=== PATIENT | male | born 1950 | race Caucasian/White ===

== ENCOUNTER 2016-12-10 08:00 | Outpatient (CLI) | payer MEDICARE, OTHER | END 2016-12-10 08:01 | disposition home or self-care (01) | DX: E78.2 Mixed hyperlipidemia (principal); R73.9 Hyperglycemia, unspecified; Z12.5 Encounter for screening for malignant neoplasm of prostate | CPT/HCPCS: 36415; 80061; 80076; 83036; G0103 ==

== ENCOUNTER 2017-01-25 06:45 | Day surgery (SDC) | payer MEDICARE, OTHER ==
[2017-01-25] MEDS ORDERED: LACTATED RINGERS 1,000 ML IV ONE ×2 (07:20→09:10)
[2017-01-25] MEDS ORDERED: MIDAZOLAM 2 MG/2 ML VIAL IVP ONE (08:40)
[2017-01-25] MEDS ORDERED: fentaNYL 250 MCG/5 ML VIAL IVP ONE (08:40)
[2017-01-25] MEDS ORDERED: LIDO GARGLE 30 ML BOTTLE PO ONE (08:45)
== END 2017-01-25 06:46 | disposition home or self-care (01) ==
PROC: 0DBL8ZZ Excision of Transverse Colon, Via Natural or Artificial Opening Endoscopic (ICD-10-PCS; 2017-01-25)
PROC: 0DJ08ZZ Inspection of Upper Intestinal Tract, Via Natural or Artificial Opening Endoscopic (ICD-10-PCS; 2017-01-25)
PROC: 0DBP8ZZ Excision of Rectum, Via Natural or Artificial Opening Endoscopic (ICD-10-PCS; principal; 2017-01-25 08:15)
PROC: 0DBL8ZZ Excision of Transverse Colon, Via Natural or Artificial Opening Endoscopic (ICD-10-PCS; 2017-01-25 08:15)
DX: Z12.11 Encounter for screening for malignant neoplasm of colon (principal); D12.3 Benign neoplasm of transverse colon; K62.1 Rectal polyp; K64.8 Other hemorrhoids; Z80.0 Family history of malignant neoplasm of digestive organs; R12 Heartburn; Z87.891 Personal history of nicotine dependence; I10 Essential (primary) hypertension
CPT/HCPCS: 43235; 45380; 45385; A9270; J3010; J7120

== ENCOUNTER 2017-03-18 13:59 | Outpatient (CLI) | payer MEDICARE, OTHER | END 2017-03-18 14:00 | disposition home or self-care (01) | DX: E78.2 Mixed hyperlipidemia (principal); Z79.899 Other long term (current) drug therapy ==

== ENCOUNTER 2017-04-20 07:10 | Outpatient (CLI) | payer MEDICARE, OTHER ==
[2017-04-20 13:36] LABS: CALCIUM 9.4 mg/dL (8.5-10.3); CREATININE 0.7 mg/dL (0.6-1.2)
== END 2017-04-20 07:11 | disposition home or self-care (01) ==
LOC: LAB.WCP 07:10
PROVIDERS: ATTEND Physician Assistant Medical
DX: Z79.899 Other long term (current) drug therapy (principal)
CPT/HCPCS: 36415; 80048

== ENCOUNTER 2017-05-30 15:20 | Outpatient (CLI) | payer MEDICARE, OTHER ==
[2017-05-30 12:53] LABS: ALBUMIN/GLOBULIN RATIO 1.4 (1.0-2.2); BILIRUBIN,TOTAL 0.7 mg/dL (0.2-1.0); BUN - BLOOD UREA NITROGEN 15 mg/dL (6-20); CALCIUM 9.4 mg/dL (8.5-10.3); CARBON DIOXIDE - CO2 28 mmol/L (21-32); CHLORIDE 103 mmol/L (101-111); CHOL/HDL RATIO 3.8 (<5.0); CHOLESTEROL 155 mg/dL; CREATININE 0.8 mg/dL (0.6-1.2); GFR - MDRD 97 (>89); GLUCOSE 113 mg/dL (70-100); HDL CHOLESTEROL 41 mg/dL; POTASSIUM 4.1 mmol/L (3.5-5.0); SODIUM 138 mmol/L (135-145); TOTAL PROTEIN 7.3 g/dL (6.7-8.2); TRIGLYCERIDES 165 mg/dL; VLDL CHOLESTEROL 33 mg/dL
== END 2017-05-30 15:21 | disposition home or self-care (01) ==
LOC: LAB.WCP 15:20
PROVIDERS: ATTEND Physician Assistant Medical
DX: E78.2 Mixed hyperlipidemia (principal); Z79.899 Other long term (current) drug therapy
CPT/HCPCS: 36415; 80053; 80061

== ENCOUNTER 2017-08-29 07:43 | Outpatient (CLI) | payer MEDICARE, OTHER ==
[2017-08-29 13:09] LABS: CALCIUM 9.1 mg/dL (8.5-10.3); CARBON DIOXIDE - CO2 28 mmol/L (21-32); CHLORIDE 103 mmol/L (101-111); GLUCOSE 114 mg/dL (70-100); POTASSIUM 4.1 mmol/L (3.5-5.0); SODIUM 136 mmol/L (135-145)
[2017-08-29 13:20] LABS: HEMOGLOBIN A1C 0.72 g/dL
[2017-08-29 13:53] LABS: ALBUMIN/GLOBULIN RATIO 1.4 (1.0-2.2); BILIRUBIN,TOTAL 0.8 mg/dL (0.2-1.0); BUN - BLOOD UREA NITROGEN 13 mg/dL (6-20); CHOLESTEROL 159 mg/dL; CREATININE 0.7 mg/dL (0.6-1.2); GFR - MDRD 112 (>89); HDL CHOLESTEROL 40 mg/dL; LDL/HDL RATIO 2.1 (<3.6); TOTAL PROTEIN 7.1 g/dL (6.7-8.2); TRIGLYCERIDES 178 mg/dL; VLDL CHOLESTEROL 36 mg/dL
== END 2017-08-29 07:44 | disposition home or self-care (01) ==
LOC: LAB.WCP 07:43
PROVIDERS: ATTEND Physician Assistant Medical
DX: Z51.81 Encounter for therapeutic drug level monitoring (principal); R73.9 Hyperglycemia, unspecified; E78.2 Mixed hyperlipidemia
CPT/HCPCS: 36415; 80053; 80061; 83036

== ENCOUNTER 2018-02-28 07:18 | Outpatient (CLI) | payer MEDICARE, OTHER ==
[2018-02-28 12:46] LABS: ALBUMIN 4.4 g/dL (3.2-5.5); ALBUMIN/GLOBULIN RATIO 1.6 (1.0-2.2); ALKALINE PHOSPHATASE 40 IU/L (42-121); ALT ALANINE AMINOTRANSFERASE 11 IU/L (10-60); AST ASPARTATE AMINOTRANSFERASE 22 IU/L (10-42); BILIRUBIN,TOTAL 0.7 mg/dL (0.2-1.0); BUN - BLOOD UREA NITROGEN 17 mg/dL (6-20); CARBON DIOXIDE - CO2 29 mmol/L (21-32); CHLORIDE 101 mmol/L (101-111); CHOL/HDL RATIO 3.8 (<5.0); CHOLESTEROL 146 mg/dL; CREATININE 0.7 mg/dL (0.6-1.2); GFR - MDRD 112 (>89); GLUCOSE 112 mg/dL (70-100); HDL CHOLESTEROL 38 mg/dL; LDL CHOLESTEROL,CALCULATED 65 mg/dL; LDL/HDL RATIO 1.7 (<3.6); SODIUM 136 mmol/L (135-145); TOTAL PROTEIN 7.1 g/dL (6.7-8.2); VLDL CHOLESTEROL 43 mg/dL
== END 2018-02-28 07:19 | disposition home or self-care (01) ==
LOC: LAB.WCP 07:18
PROVIDERS: ATTEND Family Medicine
DX: E78.2 Mixed hyperlipidemia (principal); Z51.81 Encounter for therapeutic drug level monitoring; Z79.899 Other long term (current) drug therapy
CPT/HCPCS: 36415; 80053; 80061; 83721

== ENCOUNTER → 2018-09-22 | Outpatient (CLI) | payer MEDICARE, OTHER ==
[2018-09-22 13:15] LABS: CHOL/HDL RATIO 3.1 (<5.0); CHOLESTEROL 129 mg/dL; HDL CHOLESTEROL 42 mg/dL; LDL CHOLESTEROL,CALCULATED 69 mg/dL; LDL/HDL RATIO 1.6 (<3.6); VLDL CHOLESTEROL 18 mg/dL
== END ==
LOC: LAB.WCP 08:00
PROVIDERS: ATTEND Family Medicine
DX: E78.2 Mixed hyperlipidemia (principal)
CPT/HCPCS: 36415; 80061; 83721

== ENCOUNTER 2019-02-05 10:26 | Outpatient (CLI) | payer MEDICARE, OTHER ==
--- NOTE | 2019-02-05 11:26 | XRAY Report ---
Reason: SHOULDER JOINT PAIN, RIGHT Procedure Date: 02/05/2019 Accession Number: [id number] / [id number] Procedure: WCP - Shoulder 3 View RT CPT Code: FULL RESULT: EXAM: RIGHT SHOULDER RADIOGRAPHY EXAM DATE: 02/05/2019 10:41 AM. CLINICAL HISTORY: Shoulder joint pain, right. COMPARISON: None. TECHNIQUE: 3 views. FINDINGS: Bones: Normal. No fracture or bone lesion. Joints: There is mild degenerative marginal osteophyte of the inferior glenoid. Minor degenerative osteophyte noted at the AC joint. No dislocation or subluxation. Soft tissues: The visualized hemithorax is unremarkable. No soft tissue swelling. IMPRESSION: Mild degenerative changes. No fracture. RADIA
== END 2019-02-05 10:27 | disposition home or self-care (01) ==
LOC: DI.WCP 10:26
PROVIDERS: ATTEND Physician Assistant
DX: M19.011 Primary osteoarthritis, right shoulder (principal)

== ENCOUNTER 2019-03-21 17:59 | Outpatient (CLI) | payer MEDICARE ==
--- NOTE | 2019-03-22 14:56 | MRI Report ---
Reason: SHOULDER JOINT PAIN,RIGHT Procedure Date: 03/21/2019 Accession Number: [id number] / [id number] Procedure: MRI - Shoulder RT W/O CPT Code: FULL RESULT: EXAM: RIGHT SHOULDER MRI WITHOUT CONTRAST EXAM DATE: 03/21/2019 07:00 PM. CLINICAL HISTORY: SHOULDER JOINT PAIN,RIGHT. COMPARISON: 02/05/2019 radiographs. TECHNIQUE: Multiplanar, multisequence T1-weighted and fluid-sensitive sequences of the shoulder without contrast. Other: None. FINDINGS: Rotator cuff: Ill-defined full-thickness tear involving the supraspinatus and upper infraspinatus measures 2.5 cm medial to lateral and 2.7 cm anterior to posterior. Thickening and increased T2 signal involving the distal fibers of the infraspinatus. Low-grade insertional tear involving the upper subscapularis allowing slight medial subluxation of the long head biceps tendon. No significant rotator cuff muscle atrophy. Long head biceps tendon: Slight medial subluxation at the upper aspect of the bicipital groove. Otherwise intact. Labrum: Linear high signal consistent with small tear at the anteroinferior labrum. Otherwise intact. Bones and articular surfaces: No significant articular cartilage defects. Acromioclavicular joint: Moderate degenerative change. Type II acromion. IMPRESSION: 1. Full-thickness tear of the distal supraspinatus and upper infraspinatus measuring 2.5 x 2.7 cm. 2. Moderate infraspinatus and subscapularis tendinosis. 3. Low-grade insertional tear of the upper subscapularis allowing slight medial subluxation of the otherwise intact long head biceps tendon. 4. Small tear at the anteroinferior labrum. 5. Moderate degenerative change at the acromioclavicular joint. RADIA
== END 2019-03-21 18:00 | disposition home or self-care (01) ==
LOC: DI 17:59
PROVIDERS: ATTEND Physician Assistant
DX: M75.101 Unspecified rotator cuff tear or rupture of right shoulder, not specified as traumatic (principal); S43.491A Other sprain of right shoulder joint, initial encounter; M19.011 Primary osteoarthritis, right shoulder

== ENCOUNTER 2019-04-02 08:38 | Outpatient (CLI) | payer MEDICARE ==
[2019-04-02 09:14] LABS: BASOPHILS % (AUTO) 0.6 %; EOSINOPHILS # (AUTO) 0.1 10^3/uL (0.0-0.7); EOSINOPHILS % (AUTO) 2.7 %; HGB - HEMOGLOBIN 15.8 g/dL (14.0-18.0); LYMPHOCYTES % (AUTO) 19.2 %; MEAN CORPUSCULAR HEMOGLOBIN 29.2 pg (27.0-31.0); MEAN CORPUSCULAR VOLUME 88.5 fL (80.0-94.0); MONOCYTES # (AUTO) 0.5 10^3/uL (0.0-1.0); NEUTROPHILS # (AUTO) 3.7 10^3/uL (1.5-6.6); NEUTROPHILS % (AUTO) 68.5 %; PLT - PLATELET COUNT 178 10^3/uL (130-450); RED BLOOD COUNT 5.42 10^6/uL (4.70-6.10); WHITE BLOOD COUNT 5.4 x10^3/uL (4.8-10.8)
[2019-04-02 09:27] LABS: CALCIUM 9.6 mg/dL (8.5-10.3); CREATININE 0.7 mg/dL (0.6-1.2)
== END 2019-04-02 08:39 | disposition home or self-care (01) ==
LOC: LAB 08:38
PROVIDERS: ATTEND Orthopaedic Surgery Sports Medicine
DX: Z01.818 Encounter for other preprocedural examination (principal); M75.41 Impingement syndrome of right shoulder; M75.101 Unspecified rotator cuff tear or rupture of right shoulder, not specified as traumatic; S46.121A Laceration of muscle, fascia and tendon of long head of biceps, right arm, initial encounter
CPT/HCPCS: 36415; 80048; 85025; 93005

== ENCOUNTER 2019-04-04 08:50 | Day surgery (SDC) | payer MEDICARE ==
[~2019-04-04 08:50] MED LIST: ceFAZolin 2 GM/50 ML 2 GM/50 ML BAG IV ONE
[2019-04-04] MEDS ORDERED: LACTATED RINGERS 1,000 ML IV ONE ×2 (09:18→11:00)
--- NOTE | 2019-04-04 09:20 | ANESTHESIA ---
Pre-Anesthesia VS, & Labs - Diagnosis right shoulder rotator cuff tear, long head of biceps subluxation, impingement - Procedure right shoulder arthroscopy vs open,right subacromial decompression,rotator cuff repair,tenodesis Vital Signs: Temp Pulse Resp BP Pulse Ox 36.4 C L 63 18 130/72 95 04/04/19 09:00 04/04/19 09:00 04/04/19 09:00 04/04/19 09:00 04/04/19 09:00 Height 5 ft 6 in Weight (kg) 69.6 kg - NPO >8 hours Home Medications and Allergies Amlodipine Besylate 10 mg PO DAILY 01/24/17 Allergies/Adverse Reactions: Allergies Allergy/AdvReac Type Severity Reaction Status Date / Time No Known Drug Allergies Allergy Verified 01/24/17 13:52 Anes History & Medical History - Anesthetic History Anesthesia Complications: reports: No previous complications Family history of Anesthesia Complications: Denies Family history of Malignant Hyperthermia: Denies - Medical History Cardiovascular: reports: Hypertension Pulmonary: reports: None Gastrointestinal: reports: None Urinary: reports: None Musculoskeletal: reports: None Endocrine/Autoimmune: reports: None Skin: reports: None - Surgical History General: Colonoscopy Exam General: Alert, Oriented x3, Cooperative, No acute distress Dental: Partials Upper, Partials Lower Mouth Openin Fingerbreadth Neck Mobility: Normal Mallampati classification: II Thyromental Distance: greater than 6 cm Respiratory: Lungs clear, Normal breath sounds, No respiratory distress, No accessory muscle use Cardiovascular: Regular rate, Normal S1, Normal S2, No murmurs Mental/Cognitive Status: Alert/Oriented X3, Normal for patient Plan Anesthesia Type: General, Interscalene Block Consent for Procedure(s) Verified and Reviewed: Yes Code Status: Attempt Resuscitation ASA classification: 2-Mild systemic disease Is this case an emergency?: No
[2019-04-04] MEDS ORDERED: BUPIVACAINE 0.5%-EPI 1:200000 PF 30 ML VIAL ONE (09:40)
[2019-04-04] MEDS ORDERED: BUPIVACAINE 0.25%-EPI 1:200000 PF 30 ML VIAL ONE (09:45)
[2019-04-04] MEDS ORDERED: EPINEPHrine 1 MG/ML AMP ONE (09:48)
[2019-04-04] MEDS ORDERED: BUPIVACAINE 0.25% PF 10 ML VIAL SUBQ ONE (10:45)
[2019-04-04] MEDS ORDERED: KETOROLAC 30 MG/ML VIAL IVP ONE (10:48)
[2019-04-04] MEDS ORDERED: fentaNYL 100 MCG/2 ML VIAL IVP ONE (10:48)
[2019-04-04] MEDS ORDERED: LIDOCAINE-MPF 2% 5 ML VIAL IM ONE (10:48)
[2019-04-04] MEDS ORDERED: ROCURONIUM 50 MG/5 ML VIAL IVP ONE (10:48)
[2019-04-04] MEDS ORDERED: ONDANSETRON 4 MG/2 ML VIAL IVP ONE (10:48)
[2019-04-04] MEDS ORDERED: MIDAZOLAM 2 MG/2 ML VIAL IVP ONE (10:48)
[2019-04-04] MEDS ORDERED: DEXAMETHASONE 4 MG/ML VIAL IVP ONE (10:48)
[2019-04-04] MEDS ORDERED: ACETAMINOPHEN 1,000 MG/100 ML 100 ML IV ONE (10:48)
[2019-04-04] MEDS ORDERED: HYDROmorphone 0.5 MG/0.5 ML SYRINGE IVP PRN (12:38)
[2019-04-04] MEDS ORDERED: ONDANSETRON 4 MG/2 ML VIAL IVP PRN (12:38)
[2019-04-04] MEDS ORDERED: oxyCODONE 5 MG TABLET PO PRN (12:39)
--- NOTE | 2019-04-04 12:42 | IMMEDIATE POSTOPERATIVE NOTE ---
Immediate Postoperative Note - Procedure Note Procedure Date: 04/04/19 Pre-Op Diagnosis: Right shoulder rotator cuff tear, subacromial impingement, Long head biceps Procedure: Arthroscopic right shoulder rotator cuff repair, long head biceps tenodesis Post-Op Diagnosis: Same Primary Surgeon: Angélica MOLINA Carrier Packer: DAVE Anesthesia Type: General ET tube, Local, Regional block Findings: Long head biceps with partial injury and subluxation full-thickness supraspinatus tear subacromial bursitis and anterior acromial spur Complications: No complications Estimated Blood Loss (in cc): 75 Plan of Care: Patient tolerated procedure well instrument and sponge counts correct patient transferred to recovery room in stable condition. Patient will follow standard right upper extremity rotator cuff repair and long head biceps tenodesis protocol.
[2019-04-04 13:25] VITALS: BP 126/84
--- NOTE | 2019-04-04 13:37 | OPERATIVE REPORT ---
DATE OF SERVICE: 04/04/2019 Physician: Oziel Goodson MD SURGEON: Oziel Goodson MD RESTAURANT TEAM MEMBER: None. ORE MINER BLASTING: Laura Vega CRNA. ANESTHESIA TYPE: General anesthesia as well as right side shoulder interscalene regional block, as w ell as 20 mL of 0.25% Marcaine with epinephrine local. ESTIMATED BLOOD LOSS: 75 mL. ANTIBIOTICS: Preoperative weight-based IV Ancef. COMPRESSION DEVICE: Bilateral calf SCD boots. FLUIDS: 1400 mL lactated Ringer's. ORTHOPEDIC IMPLANTS 1. Arthrex triple-loaded BioComposite corkscrew x3, 5.5 mm. 2. [employer] 7 x 19 mm SwiveLock and associated #2 FiberWires. PREOPERATIVE DIAGNOSES: 1. Right shoulder rotator cuff tear. 2. Right shoulder subacromial impingement. 3. Right shoulder long head biceps injury. POSTOPERATIVE DIAGNOSES: 1. Right shoulder rotator cuff tear. 2. Right shoulder subacromial impingement. 3. Right shoulder long head biceps injury. PROCEDURES: 1. Right shoulder arthroscopic rotator cuff repair. 2. Right shoulder arthroscopic subacromial decompression. 3. Right shoulder arthroscopic long head biceps tenodesis. HISTORY OF PRESENT ILLNESS AND INDICATIONS: The patient is a 68-year-old gentleman who injured his r ight shoulder, found to have rotator cuff and biceps injury as well as impingement. He is indicated for operative treatment. Please see previous clinic discussion for risks, benefits and alternatives reviewed with the patient. We again highlighted these with the patient and the patient's in the preoperative care unit. His questions were answered. He verbalized understanding of the above, lyssa balized wish to proceed with operative treatment. Informed consent was given. OPERATIVE FINDINGS: The patient was noted to have glenohumeral joint with partial biceps injury and s ubluxation. There is full-thickness rotator cuff tear supraspinatus, minimal fraying subscapularis. Minimal glenohumeral chondromalacia grade 1-2 with some labral fraying. No loose bodies appreciated . Downsloping anterior aspect of the acromion and subacromial bursitis. PROCEDURE: On 04/04/2019, patient was identified in the preoperative care unit. He identified his r ight shoulder as the operative site. This was signed by the operating surgeon. Patient received pre operative weight-based IV antibiotics. Patient had right side identified, and interscalene ultrasoun d-guided block is administered to the right shoulder. Patient brought to the operating room. General anesthesia administered. He was placed on the left s anup down lateral decubitus position. The head, neck and extremities placed in anatomically comfortab le and safe position to avoid peripheral nerve stretch or compression. Abdomen and legs gel-padded, SCD boots were in place, pillows are between legs, genitalia is confirme d to be safe. Axillary roll was placed appropriately to avoid any compression of the axilla. Head a nd neck are protected. At this point, right upper extremity is pre-scrubbed with Hibiclens solution and then alcohol after s having of the axilla, and then the right upper extremity was prepped and draped using chlorhexidine s olution. A combination of 5 or 15 pounds of traction are used during different portions of the case. At this point, after prepping and draping, the right shoulder was identified as the operative site, site identification pause performed. At this point, local anesthetic infused posteriorly, anteriorly and laterally. A small stab incision was made posteriorly. Scope was introduced into the glenohumeral joint. Anterior portal was create d. A diagnostic arthroscopy was carried out. Biceps was tagged and then released from the superior labrum. This was debrided, and then attention was directed to the subacromial space, where subacromi al decompression performed using a combination of shaver as well as arthroscopic heating device with appropriate flow to avoid thermal injury, as well as bur through a lateral portal to convert to a typ e I acromion. Once this was performed, the supraspinatus rotator cuff tear was debrided sharply using a meniscal ba sket . The bur was used to freshen the rotator cuff footprint. At this point, a long head biceps wa s pulled through an anterolateral axillary portal. It is tagged and whip-stitched with a #2 FiberWir e, and sized, and then a guide pin was placed into the superior aspect of the biceps groove, followed by reaming to a size 7.5 mm, followed by placing the biceps tendon into this groove, and being fixed with a SwiveLock device per protocol. This fixes the biceps nicely in the long head biceps groove, and then the residual sutures are cut. At this point, three sequential anterior to posterior triple-loaded anchors were placed in the rotato r cuff footprint with 8 simple sutures, followed by a final horizontal mattress suture posteriorly. These were tied in reverse order thereby re-opposing the rotator cuff to the near anatomic footprint, and suture limbs were then cut. The rotator cuff was examined and ranged, and noted to be stable, a nd probed. No further indication for any additional rotator cuff repair needed. At this point, the subacromial space was copiously irrigated. Hemostasis achieved. Instruments are removed. Arthroscopic portals were closed using interrupted nylon suture. Skin is washed and dried, local anesthetic infused in the incision regions. Xeroform dressing applied. Dry sterile dressing applied and micropore tape is applied. The patient tolerated the procedure well. Instrument and sponge counts were correct. The patient wa s transferred to recovery room in stable condition. The patient's family was contacted in the waitin g room. Case discussed with the patient's , arthroscopic photos reviewed. Perioperative medicat ion plan reviewed. The patient denied any contraindications to that preoperatively. Postoperative instructions given. The patient's 's questions were answered. She verbalized agre ement and satisfaction with the plan as outlined, as had been previously discussed with the patient. TD: 04/04/2019 12:53
== END 2019-04-04 08:51 | disposition home or self-care (01) ==
LOC: SDS 08:50
PROVIDERS: ATTEND Orthopaedic Surgery Sports Medicine
PROC: 0LQ14ZZ Repair Right Shoulder Tendon, Percutaneous Endoscopic Approach (ICD-10-PCS; 2019-04-04)
PROC: 0RNJ4ZZ Release Right Shoulder Joint, Percutaneous Endoscopic Approach (ICD-10-PCS; 2019-04-04)
PROC: 0LS14ZZ Reposition Right Shoulder Tendon, Percutaneous Endoscopic Approach (ICD-10-PCS; principal; 2019-04-04 10:00)
PROC: 0RHJ44Z Insertion of Internal Fixation Device into Right Shoulder Joint, Percutaneous Endoscopic Approach (ICD-10-PCS; 2019-04-04 10:00)
DX: S46.011A Strain of muscle(s) and tendon(s) of the rotator cuff of right shoulder, initial encounter (principal); S46.191A Other injury of muscle, fascia and tendon of long head of biceps, right arm, initial encounter; M75.41 Impingement syndrome of right shoulder; M75.51 Bursitis of right shoulder; M94.211 Chondromalacia, right shoulder; M75.81 Other shoulder lesions, right shoulder; I10 Essential (primary) hypertension; Z87.891 Personal history of nicotine dependence
CPT/HCPCS: 29826; 29827; 29828; C1713; J0690; J7120

== ENCOUNTER 2019-07-26 08:00 | Outpatient (CLI) | payer MEDICARE ==
[2019-07-26 12:32] LABS: BASOPHILS % (AUTO) 0.5 %; EOSINOPHILS # (AUTO) 0.2 10^3/uL (0.0-0.7); EOSINOPHILS % (AUTO) 4.2 %; HGB - HEMOGLOBIN 15.2 g/dL (14.0-18.0); LYMPHOCYTES # (AUTO) 0.9 10^3/uL (1.5-3.5); LYMPHOCYTES % (AUTO) 16.3 %; MEAN CORPUSCULAR HEMOGLOBIN 28.6 pg (27.0-31.0); MEAN CORPUSCULAR HGB CONC 31.3 g/dL (32.0-36.0); MEAN CORPUSCULAR VOLUME 91.3 fL (80.0-94.0); MEAN PLATELET VOLUME 11.7 fL (7.4-11.4); MONOCYTES # (AUTO) 0.5 10^3/uL (0.0-1.0); MONOCYTES % (AUTO) 9.2 %; NEUTROPHILS % (AUTO) 69.3 %; PLT - PLATELET COUNT 197 10^3/uL (130-450); RED BLOOD COUNT 5.31 10^6/uL (4.70-6.10); WHITE BLOOD COUNT 5.8 x10^3/uL (4.8-10.8)
[2019-07-26 12:38] LABS: ALBUMIN 4.2 g/dL (3.2-5.5); ALBUMIN/GLOBULIN RATIO 1.4 (1.0-2.2); ALKALINE PHOSPHATASE 46 IU/L (42-121); ALT ALANINE AMINOTRANSFERASE 13 IU/L (10-60); AST ASPARTATE AMINOTRANSFERASE 23 IU/L (10-42); BILIRUBIN,TOTAL 1.1 mg/dL (0.2-1.0); BUN - BLOOD UREA NITROGEN 21 mg/dL (6-20); CALCIUM 9.2 mg/dL (8.5-10.3); CARBON DIOXIDE - CO2 30 mmol/L (21-32); CHLORIDE 103 mmol/L (101-111); CHOL/HDL RATIO 3.7 (<5.0); CHOLESTEROL 176 mg/dL; CREATININE 0.7 mg/dL (0.6-1.2); GFR - MDRD 112 (>89); GLUCOSE 117 mg/dL (70-100); HDL CHOLESTEROL 47 mg/dL; LDL CHOLESTEROL,CALCULATED 111 mg/dL; LDL/HDL RATIO 2.4 (<3.6); SODIUM 139 mmol/L (135-145); TOTAL PROTEIN 7.2 g/dL (6.7-8.2); VLDL CHOLESTEROL 18 mg/dL
[2019-07-26 13:12] LABS: HB2 TOTAL 15.6 g/dL; HEMOGLOBIN A1C 0.68 g/dL; HEMOGLOBIN A1C % 6.1 % (4.6-6.2)
== END 2019-07-26 23:59 | disposition home or self-care (01) ==
LOC: LAB.WCP 08:00
PROVIDERS: ATTEND Physician Assistant
DX: E78.2 Mixed hyperlipidemia (principal); R73.9 Hyperglycemia, unspecified; Z12.5 Encounter for screening for malignant neoplasm of prostate; I10 Essential (primary) hypertension; D12.6 Benign neoplasm of colon, unspecified; R68.3 Clubbing of fingers; R06.83 Snoring; Z51.81 Encounter for therapeutic drug level monitoring; Z79.899 Other long term (current) drug therapy
CPT/HCPCS: 36415; 80061; 83036; G0103; 80053; 83721; 84153; 84443; 85025

== ENCOUNTER 2020-08-05 13:13 | Outpatient (CLI) | payer MEDICARE | END 2020-08-05 13:14 | disposition home or self-care (01) | LOC: COV 13:13 | PROVIDERS: ATTEND Family Medicine | DX: M79.10 Myalgia, unspecified site (principal); R19.7 Diarrhea, unspecified; Z20.828 Contact with and (suspected) exposure to other viral communicable diseases ==

== ENCOUNTER 2020-12-08 07:00 | Outpatient (CLI) | payer MEDICARE ==
[2020-12-08 12:04] LABS: BASOPHILS % (AUTO) 0.6 %; EOSINOPHILS # (AUTO) 0.1 10^3/uL (0.0-0.7); EOSINOPHILS % (AUTO) 1.7 %; HGB - HEMOGLOBIN 15.4 g/dL (14.0-18.0); LYMPHOCYTES # (AUTO) 1.1 10^3/uL (1.5-3.5); LYMPHOCYTES % (AUTO) 21.7 %; MEAN CORPUSCULAR HEMOGLOBIN 30.4 pg (27.0-31.0); MEAN CORPUSCULAR VOLUME 92.1 fL (80.0-94.0); MONOCYTES # (AUTO) 0.4 10^3/uL (0.0-1.0); MONOCYTES % (AUTO) 8.1 %; NEUTROPHILS # (AUTO) 3.5 10^3/uL (1.5-6.6); NEUTROPHILS % (AUTO) 67.7 %; PLT - PLATELET COUNT 196 10^3/uL (130-450); RED BLOOD COUNT 5.07 10^6/uL (4.70-6.10); RED CELL DISTRIBUTION WIDTH 12.6 % (12.0-15.0); WHITE BLOOD COUNT 5.2 x10^3/uL (4.8-10.8)
[2020-12-08 13:08] LABS: ALBUMIN 4.4 g/dL (3.2-5.5); ALBUMIN/GLOBULIN RATIO 1.5 (1.0-2.2); ALKALINE PHOSPHATASE 53 IU/L (42-121); ALT ALANINE AMINOTRANSFERASE 13 IU/L (10-60); AST ASPARTATE AMINOTRANSFERASE 19 IU/L (10-42); BILIRUBIN,TOTAL 0.7 mg/dL (0.2-1.0); BUN - BLOOD UREA NITROGEN 17 mg/dL (6-20); CALCIUM 9.4 mg/dL (8.5-10.3); CARBON DIOXIDE - CO2 28 mmol/L (21-32); CHLORIDE 102 mmol/L (101-111); CHOL/HDL RATIO 3.5 (<5.0); CHOLESTEROL 188 mg/dL; CREATININE 0.8 mg/dL (0.6-1.2); GLUCOSE 119 mg/dL (70-100); HDL CHOLESTEROL 53 mg/dL; LDL CHOLESTEROL,CALCULATED 109 mg/dL; LDL/HDL RATIO 2.1 (<3.6); TOTAL PROTEIN 7.4 g/dL (6.7-8.2); VLDL CHOLESTEROL 26 mg/dL
== END 2020-12-08 23:59 | disposition home or self-care (01) ==
LOC: LAB.WCP 07:00
PROVIDERS: ATTEND Physician Assistant Medical
DX: R73.9 Hyperglycemia, unspecified (principal); E78.2 Mixed hyperlipidemia; Z12.5 Encounter for screening for malignant neoplasm of prostate; I10 Essential (primary) hypertension
CPT/HCPCS: 36415; 80053; 80061; 83036; 84443; 85025; G0103; 83721; 84153

== ENCOUNTER 2021-01-23 08:24 | Outpatient (CLI) | payer MEDICARE ==
[2021-01-23 09:16] VITALS: BP 113/66
--- NOTE | 2021-01-23 09:16 | SLEEP CARE CONSULTATION ---
Information from patient questionnaire entered by Laura Sauceda. I have reviewed and concur with the information entered by Laura Sauceda. This document represents the service I personally performed and the decisions made by me, Nayla Hopper ARNP. History of Present Illness Service Date and Time: 01/23/2021823 Reason for Visit: New patient Chief Complaint: reports: Snoring, Observed pauses in breathing Date of Onset: more than 20 years Usual bedtime: 9-10 pm Time it takes to fall asleep: no time Snores at night: Yes Observed to quit breathing while asleep: Yes Sleeps alone due to snoring: No Number of times waking at night: once in a while Reasons for waking at night: reports: Bathroom. denies: Choking, Snoring, Gasping for air Toss, Turn, or Twitch while sleeping: No Recalls having dreams: No Usually gets out of bed at: 5-6 am Feels refreshed in the morning: Yes Morning headache: No Sleepy or fatigued during the day: No Ever fallen asleep while driving: No Takes day naps: No Dreams during day naps: No Prior sleep studies: No Additional HPI information: I had the pleasure of seeing FRANDY SALVADOR today regarding the possibility of him having a sleep disorder. His current complaints are snoring and observed pauses in breathing. His and a friend has told him he snores loudly. He had a colonoscopy and was told he stopped breathing under anesthesia. He feels rested in the mornings and not overly sleepy during the day. He has history of hypertension, high cholesterol and psoriasis. - Parasomnia Symptoms Ever been unable to move upon waking from sleep: No Walks in sleep: No Talks in sleep: No Ever acted out dreams in sleep: No Ever felt weak in the knees when startled or emotional: No Bothered by creepy, crawly, restless sensations in legs: No Problems with memory or concentration: No Subjective Initial [place] Sleepiness Scale score: 4 (in 2020) Past Medical History Past Medical History: reports: Hypertension, Other (high cholesterol; psoriasis) Social History The patient's occupation is a Retired. Patient is and lives in [place]. Have you smoked in the past 12 months: No Alcohol use: No Caffeine use: Yes Caffeine amount and frequency: 3-4 cups a day Family History Family history of sleep disordered breathing: No Allergies and Home Medications Drug allergies reviewed: Yes (NKDA) Home medication list reviewed: Yes Allergy and home medication list: Methotrexate Lisinopril Lovastatin Review of Systems Weight loss over past 5 years: 10 Cardiovascular: reports: high blood pressure Gastrointestinal: denies: heartburn Neurological: denies: headaches Psychiatric: denies: anxiety, depression, mood disorder Ear/Nose/Throat: reports: nasal congestion, injury to nose (not a fracture), tonsillectomy, wisdom teeth removed. denies: dry mouth/throat Immunologic: reports: sneezing, allergies to food or environment (environment) Physical Exam Blood Pressure: 113/66 Cuff size: wrist Heart Rate: 69 O2 Saturation: 96 Height: 5 ft 6 in Weight: 156 lb Body Mass Index: 25.2 BMI Classification: Overweight Neck circumference: 15.1 (inches) Nostrils: patent to airflow Mouth and throat: narrow oropharynx Soft palate: long Hard palate: normal Uvula visualization: 25% Mallampati Class III Tongue: normal in size Tonsils: absent bilaterally Chin and jaw: normal size and position Neck: normal w/o lymphadenopathy or thyromegaly Heart: regular rate and rhythm Lungs: clear bilaterally Impression and Plan 1. Suspected Obstructive Sleep Apnea-Hypopnea Syndrome, as suggested by a history of loud and irregular snoring, observed cessation of breath while asleep and hypertension. Narrow oropharynx and obesity are common predisposing factors for obstructive sleep apnea-hypopnea syndrome. I recommend proceeding to polysomnography to confirm the diagnosis and to assess severity. If the patient has significant sleep disordered breathing, a manual CPAP titration study will also be performed to find the optimal treatment pressure. I informed the patient of what the sleep studies involve and after some discussion, obtained agreement to proceed. The pathophysiology of obstructive sleep apnea-hypopnea syndrome was discussed with the patient and health risks of cardiovascular and cerebrovascular disease if not treated. AASM brochure for obstructive sleep apnea-hypopnea syndrome given and reviewed. Risks of drowsy driving discussed in detail and patient advised to avoid long distance driving and to tack puller machine at the first sign of drowsiness. Patient agreed to plan. * Schedule polysomnography +- manual CPAP titration study and return in 1-2 weeks after the study to discuss result and initiate therapy. * Avoid long distance driving or driving when feeling sleepy. * Avoid alcohol, sedative and muscle relaxant around bedtime. * Attempt to lose weight. * Review instructions provided by trained office staff on how to prepare for the sleep study. * Return for follow-up after sleep study completed. Counseling Topics: Weight loss health impact Visit Type: In Office Time Spent with Patient (minutes): 27 Provider Statement: I spent 100% of the Face to Face Visit with the patient with greater than 50% spent counseling the patient and coordination of care.
== END 2021-01-23 08:25 | disposition home or self-care (01) ==
LOC: SC 08:24
PROVIDERS: ATTEND Nurse Practitioner Family
DX: R06.81 Apnea, not elsewhere classified (principal); R06.83 Snoring; I10 Essential (primary) hypertension; E66.3 Overweight; Z68.25 Body mass index [BMI] 25.0-25.9, adult
CPT/HCPCS: 99202; G0463; 99212

== ENCOUNTER 2021-02-17 08:58 | Outpatient (CLI) | payer MEDICARE | END 2021-02-17 08:59 | disposition home or self-care (01) | LOC: SC 08:58 | PROVIDERS: ATTEND Nurse Practitioner Family | DX: G47.33 Obstructive sleep apnea (adult) (pediatric) (principal); R09.02 Hypoxemia | CPT/HCPCS: G0399 ×2; 95806 ==

== ENCOUNTER 2021-02-19 15:44 | Outpatient (CLI) | payer MEDICARE ==
--- NOTE | 2021-02-19 16:06 | SLEEP CARE CONSULTATION ---
Information from patient questionnaire entered by Juliana Garsia. I have reviewed and concur with the information entered by Juliana Garsia. This document represents the service I personally performed and the decisions made by me, Nayla Hopper ARNP. History of Present Illness Service Date and Time: 02/19/2021 1544 Initial [place] Sleepiness Scale score: 4 (in 2020) Current [place] Sleepiness Scale score: 6 Additional HPI information: FRANDY SALVADOR returns for follow up and results of the recently performed home sleep study. Results: Severe obstructive sleep apnea with an average AHI of 47.9 and clara oxygen saturation of 58%. I explained the pathophysiology behind obstructive sleep apnea. We then spent quite a bit of time discussing different treatment options. For mild obstructive sleep apnea, surgery and oral appliance are alternatives to nasal CPAP therapy but in moderate or severe cases, nasal CPAP is the most effective and reliable treatment. Because apnea is primarily in supine position, then positional management therapy could be effective. Methods discussed such as positioning with pillows, using a T-shirt with tennis balls in the back, and shown commercial products that have a pillow format on back to prevent supine sleep. I reviewed the impact of weight changes on sleep apnea and strongly recommended losing weight. After some discussion, the patient opted to go with the nasal CPAP therapy. Nasal a utoCPAP set at 4-15 cmH20 will be ordered with rationale explained. A manual titration study will be ordered if unable to find optimal pressure with office adjustments. I explained how CPAP machine works with sample devices Respironics Dreamstation and ResMed [id number] and what to expect when using the machine. Using CPAP every night in order to get used to it was emphasized. Patient advised to put CPAP mask on before getting into bed so as not to fall asleep without CPAP. To assist acclimation to CPAP use, it could also be used for a short time during day while reading or watching TV. The patient was instructed to call the CPAP supplier to discuss any mechanical problem that may occur. If the mask given is uncomfortable or is difficult to keep on through the night even with adjustment, contact the CPAP supplier as many will replace with another mask style if notified before 30 days. If snoring or perceives is not getting enough air or too much air from the machine, notify this office. AASM patient education PAP tips reviewed and given to patient. Patient counseled not drink alcohol less than 4 hours before bedtime as it can increase snoring and apnea. Patient was cautioned about risks of drowsy driving until sleepiness symptoms resolve. Sleep Study - Results Type of Sleep Study: Home sleep study Prior sleep studies: No Polysomnography/Home Sleep Study results: Physician Impression: The quality of the study is good. The length of the study is adequate (> 240 minutes). Please also see the tabulated and graphic data. 1. Obstructive Sleep Apnea-Hypopnea (ICD-10 G47.33), severe, with an AHI of 47.9 /hr and clara SaO2 of 58%. During the study, the patient had 268 apneas (268 obstructive, 0 central, 0 mixed) and 53 hypopneas. The longest episode lasted 88.5 seconds. The patient only slept supine during this study (supine AHI was 47.9 and non-supine, 0.00). 2. Hypoxemia (ICD-10 R09.02), severe, with the lowest oxygen saturation of 58 % and 125.7 minutes with SaO2 under 90%. Baseline oxygen saturation was normal (Average oxygen saturation was 90%). Allergies and Home Medications Home medication list reviewed: Yes (no new medcations) Review of Systems Review of systems same as previous: Yes (no changes) Physical Exam Heart Rate: 72 O2 Saturation: 95 Height: 5 ft 6 in Weight: 156 lb Body Mass Index: 25.2 BMI Classification: Overweight Impression and Plan 1. Obstructive Sleep Apnea-Hypopnea Syndrome, severe, with lowest oxygen saturation of 58%. Obviously this is the cause of the patients symptoms of unrefreshed sleep, and excessive daytime sleepiness. Positive pressure therapy could benefit hypertension. As mentioned above, the patient will be started on nasal autoCPAP therapy with pressure set at 4-15 cmH2O. I will have them do an urgent set up based upon his severe hypoxemia. A manual titration study will be completed if unable to find optimal treatment pressure with office adjustments. Compliance guidelines also reviewed. A copy of compliance guidelines will be given for reference at check out. Because the apnea may be more severe supine, I instructed to avoid sleeping supine using pillow positioning until able to start CPAP use. 2. Hypoxemia, severe, with the lowest oxygen saturation of 58 % and 125.7 minutes with SaO2 under 90%. His baseline oxygen saturation was normal with an average oxygen saturation of 90%. * Nasal auto CPAP therapy, pressure at 4-15 cm H2O. * Attempt to lose weight. * Avoid alcohol consumption near bedtime. * Avoid supine sleep until using CPAP. * The patient is again cautioned about driving until sleepiness completely resolves. * Return one month after CPAP obtained. I will assess response to therapy and compliance at that time. Counseling Topics: Weight loss health impact Visit Type: In Office Time Spent with Patient (minutes): 20 Provider Statement: I spent 100% of the Face to Face Visit with the patient with greater than 50% spent counseling the patient and coordination of care.
== END 2021-02-19 15:45 | disposition home or self-care (01) ==
LOC: SC 15:44
PROVIDERS: ATTEND Nurse Practitioner Family
DX: G47.33 Obstructive sleep apnea (adult) (pediatric) (principal); R09.02 Hypoxemia; E66.3 Overweight; Z68.25 Body mass index [BMI] 25.0-25.9, adult
CPT/HCPCS: 99213; G0463; 99212

== ENCOUNTER 2021-03-31 09:02 | Outpatient (CLI) | payer MEDICARE ==
--- NOTE | 2021-03-31 09:25 | SLEEP CARE CONSULTATION ---
Information from patient questionnaire entered by Laura Sauceda. I have reviewed and concur with the information entered by Laura Sauceda. This document represents the service I personally performed and the decisions made by , Nayla Hopper ARNP. History of Present Illness Service Date and Time: 03/31/2021 0902 Previous diagnosis: Severe, Obstructive Sleep Apnea-Hypopnea Syndrome AHI: 47.9 (in 2020) Reason for follow up: first compliance Equipment type: CPAP Equipment obtained from: Other ([facility]; got initial supplies) Mask style: Full face Backup mask available: Yes (other mask) Last cushion change: 1 month Prior sleep studies: Yes Year and Where: 2020 - [facility] Type of Sleep Study: Home sleep study HPI additional information: FRANDY SALVADOR was diagnosed to have severe, AHI 47.9, obstructive sleep apnea- hypopnea syndrome and returned today for CPAP therapy first compliance follow- up. CPAP Compliance Data - Data Reviewed with Patient Average duration of nightly device use: 6 hr 25 min Compliance rate %: 93 Current pressure setting (cmH2O): 4-15 (median 11.3, avg 14.2, peak 14.8) Humidity settin Average residual AHI: 5.7 Central apnea: 0.5 Obstructive apnea: 2.4 Subjective Patient concerns: reports: mask leak noise. denies: aerophagia, mask discomfort, air blowing in eyes, condensation in mask/hose, nasal congestion, dry mouth, nose, throat, epistaxis, other Observed to snore while using device: No Current pressure setting perceived as: comfortable On therapy, patient: reports: sleeping better, awakening more refreshed, being more awake and alert during the day, more rested overall. denies: drowsiness while driving Initial [place] Sleepiness Scale score: 4 (in 2020) Current [place] Sleepiness Scale score: 6 Allergies and Home Medications Home medication list reviewed: Yes (no new meds) Review of Systems Review of systems same as previous: Yes (no changes) Physical Exam Heart Rate: 62 O2 Saturation: 97 Height: 5 ft 6 in Weight: 156 lb Body Mass Index: 25.2 BMI Classification: Overweight Impression and Plan 1. Obstructive Sleep Apnea-Hypopnea Syndrome, severe, with good treatment compliance and fair apnea control with minimally elevated residual AHI. On CPAP therapy, the patient has better sleep quality and is more rested overall. The patients pressure will be changed to autoCPAP 12-14 cmH20 for minimal elevation of residual AHI to reflect the pressures he is using. Patient advised to contact me if pressure change is uncomfortable so that it can be adjusted. Goals for a pnea control discussed. Patient's apnea severity and rationale for treatment to reduce apnea, improve sleep quality and reduce cardiovascular and cerebrovascular events was reviewed. I also reviewed the benefit of consistent device use of CPAP for hypertension. * Change auto CPAP pressure to 12-14 cmH2O * Notify me if snoring with mask or feeling that the pressure is too much or too little * Attempt to lose weight * Call this office if any problems using CPAP * Return for follow up in 1-2 months, or sooner if concerns arise Counseling Topics: Spare mask, Weight loss health impact Visit Type: In Office Time Spent with Patient (minutes): 14 Provider Statement: I spent 100% of the Face to Face Visit with the patient with greater than 50% spent counseling the patient and coordination of care.
== END 2021-03-31 09:03 | disposition home or self-care (01) ==
LOC: SC 09:02
PROVIDERS: ATTEND Nurse Practitioner Family
DX: G47.33 Obstructive sleep apnea (adult) (pediatric) (principal); E66.3 Overweight; Z68.25 Body mass index [BMI] 25.0-25.9, adult
CPT/HCPCS: 99212; G0463

== ENCOUNTER 2021-06-02 08:14 | Outpatient (CLI) | payer MEDICARE ==
--- NOTE | 2021-06-02 08:37 | SLEEP CARE CONSULTATION ---
Information from patient questionnaire entered by Ember Clinton. I have reviewed and concur with the information entered by Ember Clinton. This document represents the service I personally performed and the decisions made by , Nayla Hopper ARNP. History of Present Illness Service Date and Time: 06/02/2021 0814 Previous diagnosis: Severe, Obstructive Sleep Apnea-Hypopnea Syndrome AHI: 47.9 (in 2020) Reason for follow up: other (2 month follow up with pressure change) Equipment type: CPAP Equipment obtained from: Other ([facility]; got initial supplies) Mask style: Full face Backup mask available: Yes (other mask) Last cushion change: 2 months Prior sleep studies: No Year and Where: 2020 - [facility] Type of Sleep Study: Home sleep study HPI additional information: FRANDY SALVADOR was diagnosed to have severe, AHI 47.9, obstructive sleep apnea- hypopnea syndrome and returned today for CPAP therapy two month pressure change follow-up. Sleep Study - Results Type of Sleep Study: Home sleep study Prior sleep studies: No Year and Where: 2020 - [facility] CPAP Compliance Data - Data Reviewed with Patient Average duration of nightly device use: 6 hours 8 minutes Compliance rate %: 87 Current pressure setting (cmH2O): 12-14 Average residual AHI: 4.4 Subjective Patient concerns: reports: mask leak noise (needs to change mask). denies: aerophagia, mask discomfort, air blowing in eyes, condensation in mask/hose, nasal congestion, dry mouth, nose, throat, epistaxis, other Observed to snore while using device: No Current pressure setting perceived as: comfortable On therapy, patient: reports: sleeping better, awakening more refreshed, being more awake and alert during the day, more rested overall. denies: drowsiness while driving Initial [place] Sleepiness Scale score: 4 (in 2020) Current [place] Sleepiness Scale score: 6 Allergies and Home Medications Home medication list reviewed: Yes (no changes) Review of Systems Review of systems same as previous: Yes (no changes) Physical Exam Heart Rate: 60 O2 Saturation: 97 Height: 5 ft 6 in Weight: 153 lb Body Mass Index: 24.7 BMI Classification: Healthy weight Impression and Plan 1. Obstructive Sleep Apnea-Hypopnea Syndrome, severe, with good treatment compliance and good apnea control. On CPAP therapy, the patient has better sleep quality and is more rested overall. He has some mask leak noise but has been using the same mask for 2 months and he states the leaks have been getting worse gradually. Mask leaks can be reduced by washing mask daily and changing mask cushions more frequently to improve mask seal and comfort. He was advised to contact his [employer] company about supplies that he needs to change out mask. He voiced understanding and agreement with plan. He has significant improvement of his sleep apnea and is satisfied with his treatment. He has no other issues with CPAP use. Patient's apnea severity and rationale for treatment to reduce apnea, improve sleep quality and reduce cardiovascular and cerebrovascular events was reviewed. I also reviewed the benefit of consistent device use of CPAP for hypertension. * Continue auto CPAP pressure at 12-15 cmH2O * Notify me if snoring with mask or feeling that the pressure is too much or too little * Maintain a healthy weight * Call this office if any problems using CPAP * Return for follow up in 3 months, or sooner if concerns arise Counseling Topics: Spare mask, Weight control Visit Type: In Office Time Spent with Patient (minutes): 20 Provider Statement: I spent 100% of the Face to Face Visit with the patient with greater than 50% spent counseling the patient and coordination of care.
== END 2021-06-02 08:15 | disposition home or self-care (01) ==
LOC: SC 08:14
PROVIDERS: ATTEND Nurse Practitioner Family
DX: G47.33 Obstructive sleep apnea (adult) (pediatric) (principal)
CPT/HCPCS: 99213; G0463; 99212

== ENCOUNTER 2021-07-09 07:48 | Outpatient (CLI) | payer MEDICARE ==
[2021-07-09 12:21] LABS: ALBUMIN 4.3 g/dL (3.2-5.5); ALBUMIN/GLOBULIN RATIO 1.6 (1.0-2.2); BILIRUBIN,TOTAL 0.8 mg/dL (0.2-1.0); CALCIUM 9.8 mg/dL (8.5-10.3); CREATININE 0.7 mg/dL (0.6-1.2); POTASSIUM 4.2 mmol/L (3.5-5.0)
[2021-07-09 12:48] LABS: ESTIMATED AVERAGE GLUCOSE 123 mg/dL (70-100); HEMOGLOBIN A1c% 5.9 % (4.27-6.07)
== END 2021-07-09 23:59 | disposition home or self-care (01) ==
LOC: LAB.WCP 07:48
PROVIDERS: ATTEND Physician Assistant Medical
DX: R73.9 Hyperglycemia, unspecified (principal)
CPT/HCPCS: 36415; 80053; 83036

== ENCOUNTER 2021-09-01 08:09 | Outpatient (CLI) | payer MEDICARE ==
[2021-09-01 08:36] VITALS: BP 119/68
--- NOTE | 2021-09-01 08:36 | SLEEP CARE CONSULTATION ---
Information from patient questionnaire entered by Ember Clinton. I have reviewed and concur with the information entered by Ember Clinton. This document represents the service I personally performed and the decisions made by , Nayla Hopper ARNP. History of Present Illness Service Date and Time: 09/01/2021 0809 Previous diagnosis: Severe, Obstructive Sleep Apnea-Hypopnea Syndrome AHI: 47.9 (in 2020) Reason for follow up: three month Equipment type: CPAP Equipment obtained from: Other ([facility]; getting supplies) Mask style: Full face Backup mask available: Yes (old mask) Last cushion change: 3-4 days ago Prior sleep studies: No Year and Where: 2020 - [facility] Type of Sleep Study: Home sleep study HPI additional information: FRANDY SALVADOR was diagnosed to have severe, AHI 47.9, obstructive sleep apnea- hypopnea syndrome and returned today for CPAP therapy three month follow-up. Sleep Study - Results Type of Sleep Study: Home sleep study Prior sleep studies: No Year and Where: 2020 - [facility] CPAP Compliance Data - Data Reviewed with Patient Average duration of nightly device use: 5 hours 54 minutes Compliance rate %: 80 Current pressure setting (cmH2O): 12-14 Average residual AHI: 3.8 Central apnea: 0.3 Obstructive apnea: 1.6 Hypopnea: 1.3 Subjective Patient concerns: reports: mask discomfort, dry mouth, nose, throat, other (occasional mouth venting). denies: aerophagia, air blowing in eyes, mask leak noise, condensation in mask/hose, nasal congestion, epistaxis Observed to snore while using device: No Current pressure setting perceived as: comfortable On therapy, patient: reports: sleeping better, awakening more refreshed, being more awake and alert during the day, more rested overall. denies: drowsiness while driving Initial [place] Sleepiness Scale score: 4 (in 2020) Current [place] Sleepiness Scale score: 6 Allergies and Home Medications Home medication list reviewed: Yes (no changes) Review of Systems Review of systems same as previous: Yes (no changes) Physical Exam Blood Pressure: 119/68 Cuff size: wrist Heart Rate: 62 O2 Saturation: 96 Height: 5 ft 6 in Weight: 153 lb Body Mass Index: 24.7 BMI Classification: Healthy weight Impression and Plan 1. Obstructive Sleep Apnea-Hypopnea Syndrome, severe, with good treatment compliance and good apnea control. On CPAP therapy, the patient has better sleep quality and is more rested overall. He has been oral venting and having some mouth dryness. Oral dryness can be reduced by adjusting humidity setting higher or heated hose lower or by adjusting both settings. Verbal instructions given on how to change humidity and heated hose settings with rationale explaining why to change. Patient's apnea severity and rationale for treatment to reduce apnea, improve sleep quality and reduce cardiovascular and cerebrovascular events was reviewed. I also reviewed the benefit of consistent device use of CPAP for hypertension. * Continue autoCPAP pressure at 12-14 cmH2O * Notify me if snoring with mask or feeling that the pressure is too much or too little * Attempt to lose weight * Call this office if any problems using CPAP * Return for follow up in 6 months, or sooner if concerns arise Counseling Topics: Spare mask, Weight control Visit Type: In Office Time Spent with Patient (minutes): 13 Provider Statement: I spent 100% of the Face to Face Visit with the patient with greater than 50% spent counseling the patient and coordination of care.
== END 2021-09-01 08:10 | disposition home or self-care (01) ==
LOC: SC 08:09
PROVIDERS: ATTEND Nurse Practitioner Family
DX: G47.33 Obstructive sleep apnea (adult) (pediatric) (principal)
CPT/HCPCS: 99212; G0463

== ENCOUNTER 2022-01-15 07:28 | Outpatient (CLI) | payer MEDICARE ==
[2022-01-15 12:34] LABS: BASOPHILS % (AUTO) 0.2 %; EOSINOPHILS # (AUTO) 0.1 10^3/uL (0.0-0.7); EOSINOPHILS % (AUTO) 1.6 %; HCT - HEMATOCRIT 44.3 % (42.0-52.0); HGB - HEMOGLOBIN 14.5 g/dL (14.0-18.0); LYMPHOCYTES % (AUTO) 17.9 %; MEAN CORPUSCULAR HEMOGLOBIN 30.7 pg (27.0-31.0); MEAN CORPUSCULAR HGB CONC 32.7 g/dL (32.0-36.0); MEAN CORPUSCULAR VOLUME 93.7 fL (80.0-94.0); MEAN PLATELET VOLUME 12.1 fL (7.4-11.4); MONOCYTES # (AUTO) 0.6 10^3/uL (0.0-1.0); MONOCYTES % (AUTO) 9.8 %; NEUTROPHILS % (AUTO) 70.3 %; PLT - PLATELET COUNT 157 10^3/uL (130-450); RED BLOOD COUNT 4.73 10^6/uL (4.70-6.10); RED CELL DISTRIBUTION WIDTH 12.5 % (12.0-15.0); WHITE BLOOD COUNT 5.7 x10^3/uL (4.8-10.8)
[2022-01-15 13:18] LABS: ESTIMATED AVERAGE GLUCOSE 120 mg/dL (70-100); HEMOGLOBIN A1c% 5.8 % (4.27-6.07)
[2022-01-15 13:32] LABS: ALBUMIN 4.3 g/dL (3.2-5.5); ALBUMIN/GLOBULIN RATIO 1.4 (1.0-2.2); ALKALINE PHOSPHATASE 42 IU/L (42-121); ALT ALANINE AMINOTRANSFERASE 13 IU/L (10-60); AST ASPARTATE AMINOTRANSFERASE 21 IU/L (10-42); BILIRUBIN,TOTAL 0.8 mg/dL (0.2-1.0); BUN - BLOOD UREA NITROGEN 20 mg/dL (6-20); CALCIUM 9.2 mg/dL (8.5-10.3); CARBON DIOXIDE - CO2 29 mmol/L (21-32); CHLORIDE 102 mmol/L (101-111); CHOL/HDL RATIO 3.2 (<5.0); CHOLESTEROL 146 mg/dL; CREATININE 0.8 mg/dL (0.6-1.2); GFR - MDRD 95 (>89); GLUCOSE 114 mg/dL (70-100); HDL CHOLESTEROL 46 mg/dL; LDL CHOLESTEROL,CALCULATED 79 mg/dL; LDL/HDL RATIO 1.7 (<3.6); POTASSIUM 4.3 mmol/L (3.5-5.0); SODIUM 137 mmol/L (135-145); TOTAL PROTEIN 7.3 g/dL (6.7-8.2); TRIGLYCERIDES 107 mg/dL; VLDL CHOLESTEROL 21 mg/dL
== END 2022-01-15 07:29 | disposition home or self-care (01) ==
LOC: LAB.N 07:28
PROVIDERS: ATTEND Physician Assistant Medical
DX: E78.2 Mixed hyperlipidemia (principal)
CPT/HCPCS: 36415; 80053; 80061; 83036; 83721; 85025

== ENCOUNTER 2022-04-15 10:52 | Day surgery (SDC) | payer MEDICARE ==
[2022-04-15] MEDS ORDERED: LACTATED RINGERS 1,000 ML IV ONE ×2 (11:05→13:15)
--- NOTE | 2022-04-15 11:36 | ANESTHESIA ---
Pre-Anesthesia VS, & Labs - Diagnosis history of colon polyps - Procedure colonoscopy Vital Signs: Temp Pulse Resp BP Pulse Ox 36.4 C L 59 L 16 127/57 L 96 04/15/22 11:06 04/15/22 11:06 04/15/22 11:06 04/15/22 11:06 04/15/22 11:06 Height: 5 ft 6 in Weight (kg): 68.95 kg Body Mass Index: 24.5 BMI Classification: Healthy weight - NPO Other (prep finished at 8am) Home Medications and Allergies Home Medications: Ambulatory Orders Methotrexate [Methotrexate Sodium] 2.5 mg PO ONCE 04/14/22 lisinopriL [Lisinopril] 20 mg PO DAILY 04/14/22 Lovastatin [Altoprev] 40 mg PO HS 04/04/19 Methotrexate [Methotrexate Sodium] 2.5 mg PO ONCE 04/14/22 lisinopriL [Lisinopril] 20 mg PO DAILY 04/14/22 Allergies/Adverse Reactions: Allergies Allergy/AdvReac Type Severity Reaction Status Date / Time No Known Drug Allergies Allergy Verified 01/24/17 13:52 Anes History & Medical History - Anesthetic History Anesthesia Complications: reports: No previous complications - Medical History Cardiovascular: reports: Hypertension, High cholesterol Pulmonary: reports: Other Gastrointestinal: reports: Colon polyps Urinary: reports: None Musculoskeletal: reports: None Endocrine/Autoimmune: reports: None Skin: reports: Psoriasis - Surgical History General: reports: Colonoscopy Orthopedic: reports: Other (shoulder arthroscopy) Exam General: Alert, Oriented x3, Cooperative Dental: WNL Mouth Openin Fingerbreadth Mallampati classification: II Thyromental Distance: 4-6 cm Respiratory: Lungs clear Cardiovascular: Regular rate, Normal S1, Normal S2 Plan Anesthesia Type: Total IV Consent for Procedure(s) Verified and Reviewed: Yes Code Status: Attempt Resuscitation ASA classification: 2-Mild systemic disease Is this case an emergency?: No
[2022-04-15] MEDS ORDERED: PROPOFOL 500 MG/50 ML 500 MG/50 ML VIAL ONE (12:03)
[2022-04-15 13:33] VITALS: BP 124/65
--- NOTE | 2022-04-15 14:21 | ANESTHESIA POST OP EVALUATION ---
Anesthesia Post Eval - Post Anesthesia Eval Vitals: Last Vital Signs Temp 36.2 C L 04/15/22 13:15 Pulse 50 L 04/15/22 13:32 Resp 16 04/15/22 13:32 BP 124/65 04/15/22 13:32 Pulse Ox 98 04/15/22 13:32 CV Function Including HR & BP: Stable Pain Control: Satisfactory Nausea & Vomiting: Negative Mental Status: Baseline Respiratory Status: Airway Patent Hydration Status: Satisfactory Anesthesia Complications: None
== END 2022-04-15 10:53 | disposition home or self-care (01) ==
LOC: SDS 10:52
PROVIDERS: ATTEND Surgery
PROC: 0DBK8ZZ Excision of Ascending Colon, Via Natural or Artificial Opening Endoscopic (ICD-10-PCS; principal; 2022-04-15 12:00)
DX: Z12.11 Encounter for screening for malignant neoplasm of colon (principal); D12.2 Benign neoplasm of ascending colon; K57.30 Diverticulosis of large intestine without perforation or abscess without bleeding
CPT/HCPCS: 45380; J7120

== ENCOUNTER 2022-04-16 09:29 | Outpatient (CLI) | payer MEDICARE ==
[2022-04-16 10:05] VITALS: BP 132/73
--- NOTE | 2022-04-16 10:05 | SLEEP CARE CONSULTATION ---
Information from patient questionnaire entered by Nubia Zimmerman MA. I have reviewed and concur with the information entered by Nubia Zimmerman MA. This document represents the service I personally performed and the decisions made by , Nayla Hopper ARNP. History of Present Illness Service Date and Time: 04/16/2022 0929 Previous diagnosis: Severe, Obstructive Sleep Apnea-Hypopnea Syndrome AHI: 47.9 (in 2020) Reason for follow up: six month (RESMED, ), annual (SEEN 09/01/2021, ) Equipment type: CPAP Equipment obtained from: Other ([facility]; getting supplies as ne eded) Mask style: Full face Backup mask available: Yes (old mask) Last cushion change: rotates 2 mask cushions with washing daily Prior sleep studies: No Year and Where: 2020 - [facility] Type of Sleep Study: Home sleep study HPI additional information: FRANDY SALVADOR was diagnosed to have severe, AHI 47.9, obstructive sleep apnea- hypopnea syndrome and returned today for CPAP therapy annual follow-up. Sleep Study - Results Type of Sleep Study: Home sleep study Prior sleep studies: No Year and Where: 2020 - [facility] CPAP Compliance Data - Data Reviewed with Patient Average duration of nightly device use: 6 HOURS 20 MINUTES Compliance rate %: 88 (120 days; 118/120 usage) Current pressure setting (cmH2O): 12-14 Average residual AHI: 3.7 Central apnea: .2 Obstructive apnea: 1.7 Average large leak: 27.2 Subjective Missed days of use due to: reports: mask issues (MASK LEAK NOISE), other (POWER OUTAGES) Patient concerns: reports: mask leak noise (just needs to adjust mask). denies: aerophagia, mask discomfort, air blowing in eyes, condensation in mask/hose, nasal congestion, dry mouth, nose, throat, epistaxis, other Observed to snore while using device: No Current pressure setting perceived as: comfortable On therapy, patient: reports: sleeping better, awakening more refreshed, being more awake and alert during the day, more rested overall. denies: drowsiness while driving Initial [place] Sleepiness Scale score: 4 (in 2020) Current [place] Sleepiness Scale score: 6 (03/2022) Allergies and Home Medications Known drug allergies: No Drug allergies reviewed: Yes Home medication list reviewed: Yes (no changes) Allergy and home medication list: Allergies No Known Drug Allergies Allergy (Verified 01/24/17 13:52) Review of Systems Review of systems same as previous: No (COLONOSCOPY) Physical Exam Vital signs obtained and entered by: VANESSA GARNICA Blood Pressure: 132/73 (PULSE 61, RESP 18, LEFT) Heart Rate: 61 O2 Saturation: 95 (N95) Height: 5 ft 6 in Weight: 150 lb (CLOTHES) Body Mass Index: 24.2 BMI Classification: Healthy weight Impression and Plan 1. Obstructive Sleep Apnea-Hypopnea Syndrome, severe, with good treatment compliance and good apnea control. On CPAP therapy, the patient has better sleep quality and is more rested overall. Patient gets some mask leaks noise that will limit his ability to use the mask. He is washing his mask cushion daily while rotating between 2 different mask cushions that he has not changed for several months. Mask leaks can be reduced by washing mask daily but they also need to have the mask cushions changed more frequently to improve mask seal and comfort. He voiced understanding. Patient's apnea severity and rationale for treatment to reduce apnea, improve sleep quality and reduce cardiovascular and cerebrovascular events was reviewed. I also reviewed the benefit of consistent device use of CPAP for hypertension. * Continue auto CPAP pressure at 12-14 cmH2O * Notify me if snoring with mask or feeling that the pressure is too much or too little * Maintain a healthy weight * Call this office if any problems using CPAP * Return for follow up in 1 year, or sooner if concerns arise Counseling Topics: Spare mask, Weight control Visit Type: In Office Time Spent with Patient (minutes): 13 Provider Statement: I spent 100% of the Face to Face Visit with the patient with greater than 50% spent counseling the patient and coordination of care.
== END 2022-04-16 09:30 | disposition home or self-care (01) ==
LOC: SC 09:29
PROVIDERS: ATTEND Nurse Practitioner Family
DX: G47.33 Obstructive sleep apnea (adult) (pediatric) (principal)
CPT/HCPCS: 99212; G0463

== ENCOUNTER 2022-12-08 07:39 | Outpatient (CLI) | payer MEDICARE ==
[2022-12-08 12:35] LABS: ALBUMIN 4.4 g/dL (3.2-5.5); ALBUMIN/GLOBULIN RATIO 1.4 (1.0-2.2); ALKALINE PHOSPHATASE 47 IU/L (42-121); ALT ALANINE AMINOTRANSFERASE 14 IU/L (10-60); AST ASPARTATE AMINOTRANSFERASE 20 IU/L (10-42); BILIRUBIN,TOTAL 1.1 mg/dL (0.2-1.0); BUN - BLOOD UREA NITROGEN 27 mg/dL (6-20); CALCIUM 9.7 mg/dL (8.5-10.3); CARBON DIOXIDE - CO2 31 mmol/L (21-32); CHLORIDE 97 mmol/L (101-111); CHOL/HDL RATIO 3.8 (<5.0); CHOLESTEROL 195 mg/dL; CREATININE 0.9 mg/dL (0.6-1.2); GFR - MDRD 83 (>89); GLUCOSE 120 mg/dL (70-100); HDL CHOLESTEROL 51 mg/dL; LDL CHOLESTEROL,CALCULATED 119 mg/dL; LDL/HDL RATIO 2.3 (<3.6); POTASSIUM 4.1 mmol/L (3.5-5.0); SODIUM 134 mmol/L (135-145); TOTAL PROTEIN 7.6 g/dL (6.7-8.2); TRIGLYCERIDES 125 mg/dL; VLDL CHOLESTEROL 25 mg/dL
[2022-12-08 12:44] LABS: ESTIMATED AVERAGE GLUCOSE 123 mg/dL (70-100); HEMOGLOBIN A1c% 5.9 % (4.27-6.07)
== END 2022-12-08 07:40 | disposition home or self-care (01) ==
LOC: LAB.N 07:39
PROVIDERS: ATTEND Physician Assistant Medical
DX: E78.2 Mixed hyperlipidemia (principal); R73.9 Hyperglycemia, unspecified
CPT/HCPCS: 36415; 80053; 80061; 83036; 83721

== ENCOUNTER 2023-05-11 08:25 | Outpatient (CLI) | payer MEDICARE ==
--- NOTE | 2023-05-11 08:57 | SLEEP CARE CONSULTATION ---
Information from patient questionnaire entered by Teresa Dave. I have reviewed and concur with the information entered by Teresa Dave. This document represents the service I personally performed and the decisions made by me, Nayla Hopper ARNP. History of Present Illness Service Date and Time: 05/11/2023 0825 Previous diagnosis: Severe, Obstructive Sleep Apnea-Hypopnea Syndrome AHI: 47.9 (in 2020) Reason for follow up: annual (LAST SEEN 04/18) Equipment type: CPAP (ResMed Airsense 10, s/u 01/2021) Equipment obtained from: Other ([facility]; getting supplies as needed) Mask style: Full face Backup mask available: Yes (old mask) Last cushion change: 3 months [facility]: [facility] Type of Sleep Study: Home sleep study HPI additional information: FRANDY SALVADOR was diagnosed to have severe, AHI 47.9, obstructive sleep apnea- hypopnea syndrome and returned today for CPAP therapy annual follow-up. Sleep Study - Results Type of Sleep Study: Home sleep study Prior sleep studies: No [facility] and [facility]: [facility] CPAP Compliance Data - Data Reviewed with Patient Average duration of nightly device use: 6 HRS 55 MIN Compliance rate %: 88 (05/11/22-05/08/23; 163/180 days used) Current pressure setting (cmH2O): 12-14 (avg 13.9) Average residual AHI: 5.1 Central apnea: 0.1 Obstructive apnea: 1.7 Hypopnea: 1.6 Subjective Missed days of use due to: reports: illness Patient concerns: reports: air blowing in eyes, dry mouth, nose, throat (dry mouth, occasionally). denies: aerophagia, mask discomfort, mask leak noise, condensation in mask/hose, nasal congestion, epistaxis Observed to snore while using device: No Current pressure setting perceived as: too low On therapy, patient: reports: sleeping better, awakening more refreshed, being more awake and alert during the day, more rested overall. denies: drowsiness while driving Initial [place] Sleepiness Scale score: 4 (in 2020) Current [place] Sleepiness Scale score: 10 Allergies and Home Medications Known drug allergies: No Drug allergies reviewed: Yes Home medication list reviewed: Yes (no changes) Allergy and home medication list: Allergies No Known Drug Allergies Allergy (Verified 05/10/23 21:31) Review of Systems Review of systems same as previous: Yes (no changes) Physical Exam Vital signs obtained and entered by: Nayla Arango NP Blood Pressure: 118/61 Cuff size: wrist (left) Heart Rate: 67 O2 Saturation: 98 Height: 5 ft 6 in Weight: 155 lb 3.2 oz Body Mass Index: 25.0 BMI Classification: Overweight Impression and Plan 1. Obstructive Sleep Apnea-Hypopnea Syndrome, severe, with good treatment compliance and good apnea control with minimal elevation of residual AHI. On CPAP therapy, the patient has better sleep quality and is more rested overall. Don feels like his pressure is a little low. The patients pressure will be changed to autoCPAP 12-15 cmH20 for minimal elevation of residual AHI and patient comfort. Patient advised to contact me if pressure change is uncomfortable so that it can be adjusted. Goals for apnea control discussed. We will follow up with him in a year. Patient's apnea severity and rationale for treatment to reduce apnea, improve sleep quality and reduce cardiovascular and cerebrovascular events was reviewed. I also reviewed the benefit of consistent device use of CPAP for hypertension. * Update supply prescription * Change auto CPAP pressure to 12-15 cmH2O * Notify me if snoring with mask or feeling that the pressure is too much or too little * Call this office if any problems using CPAP * Return for follow up in 1 year, or sooner if concerns arise Counseling Topics: Spare mask Visit Type: In Office Time Spent with Patient (minutes): 20 Provider Statement: I spent 100% of the Face to Face Visit with the patient with greater than 50% spent counseling the patient and coordination of care.
[2023-05-11 09:02] VITALS: BP 118/61
== END 2023-05-11 08:26 | disposition home or self-care (01) ==
LOC: SC 08:25
PROVIDERS: ATTEND Nurse Practitioner Family
DX: G47.33 Obstructive sleep apnea (adult) (pediatric) (principal); E66.3 Overweight; Z68.25 Body mass index [BMI] 25.0-25.9, adult
CPT/HCPCS: 99213; G0463; 99212

== ENCOUNTER 2023-12-21 07:33 | Outpatient (CLI) | payer MEDICARE ==
[2023-12-21 12:41] LABS: BASOPHILS % (AUTO) 0.3 %; EOSINOPHILS # (AUTO) 0.1 10^3/uL (0.0-0.7); EOSINOPHILS % (AUTO) 2.2 %; HCT - HEMATOCRIT 45.1 % (42.0-52.0); HGB - HEMOGLOBIN 14.3 g/dL (14.0-18.0); MEAN CORPUSCULAR HEMOGLOBIN 29.7 pg (27.0-31.0); MEAN CORPUSCULAR HGB CONC 31.7 g/dL (32.0-36.0); MEAN CORPUSCULAR VOLUME 93.6 fL (80.0-94.0); MEAN PLATELET VOLUME 10.9 fL (7.4-11.4); MONOCYTES # (AUTO) 0.6 10^3/uL (0.0-1.0); MONOCYTES % (AUTO) 10.6 %; NEUTROPHILS # (AUTO) 4.2 10^3/uL (1.5-6.6); NEUTROPHILS % (AUTO) 69.4 %; PLT - PLATELET COUNT 173 10^3/uL (130-450); RED BLOOD COUNT 4.82 10^6/uL (4.70-6.10); RED CELL DISTRIBUTION WIDTH 13.3 % (12.0-15.0)
[2023-12-21 12:50] LABS: ESTIMATED AVERAGE GLUCOSE 126 mg/dL (70-100)
[2023-12-21 12:54] LABS: ALBUMIN 4.3 g/dL (3.2-5.5); ALBUMIN/GLOBULIN RATIO 1.6 (1.0-2.2); ALKALINE PHOSPHATASE 53 IU/L (42-121); ALT ALANINE AMINOTRANSFERASE 8 IU/L (10-60); AST ASPARTATE AMINOTRANSFERASE 14 IU/L (10-42); BILIRUBIN,TOTAL 0.5 mg/dL (0.2-1.0); BUN - BLOOD UREA NITROGEN 23 mg/dL (6-20); CALCIUM 9.4 mg/dL (8.5-10.3); CARBON DIOXIDE - CO2 29 mmol/L (21-32); CHLORIDE 103 mmol/L (101-111); CHOL/HDL RATIO 4.1 (<5.0); CHOLESTEROL 191 mg/dL; GFR - MDRD 73 (>89); GLUCOSE 122 mg/dL (74-104); HDL CHOLESTEROL 47 mg/dL; LDL CHOLESTEROL,CALCULATED 99 mg/dL; LDL/HDL RATIO 2.1 (<3.6); POTASSIUM 4.6 mmol/L (3.5-4.5); SODIUM 137 mmol/L (135-145); TRIGLYCERIDES 227 mg/dL (48-352); VLDL CHOLESTEROL 45 mg/dL
== END 2023-12-21 07:34 | disposition home or self-care (01) ==
LOC: LAB.N 07:33
PROVIDERS: ATTEND Physician Assistant Medical
DX: I10 Essential (primary) hypertension (principal); E78.2 Mixed hyperlipidemia; R73.9 Hyperglycemia, unspecified
CPT/HCPCS: 36415; 80053; 80061; 83036; 83721; 85025

== ENCOUNTER 2024-05-25 08:54 | Outpatient (CLI) | payer MEDICARE ==
--- NOTE | 2024-05-25 09:38 | Sleep Patient Instructions ---
Sleep Center Visit Summary - Patient Visit Information Reason for Visit: Annual follow-up - Patient Instructions Additional Instructions: You will continue with CPAP therapy with pressure set at 12-15 cmH2O. A supply prescription will be updated with your DME. Please follow up with the sleep care office in 1 year. - Clinic Information Contact: [facility] [address] [place] [id number] [email or web address] T: [phone]
--- NOTE | 2024-05-25 09:41 | SLEEP CARE CONSULTATION ---
Information from patient questionnaire entered by Teresa Dave. I have reviewed and concur with the information entered by Teresa Dave. This document represents the service I personally performed and the decisions made by , Nayla Hopper ARNP. History of Present Illness Service Date and Time: 05/25/2024 0854 Previous diagnosis: Severe, Obstructive Sleep Apnea-Hypopnea Syndrome AHI: 47.9 (in 2020) Reason for follow up: annual (LAST SEEN 04/2023) Equipment type: CPAP (ResMed Airsense 10, s/u 01/2021) Equipment obtained from: Other ([facility]; getting supplies as needed) Mask style: Full face Backup mask available: Yes (old mask) Last cushion change: rotate through 3 cushions Prior sleep studies: No Year and Where: 2020 - [facility] Type of Sleep Study: Home sleep study HPI additional information: FRANDY SALVADOR was diagnosed to have severe, AHI 47.9, obstructive sleep apnea- hypopnea syndrome and returned today for CPAP therapy annual follow-up. Sleep Study - Results Type of Sleep Study: Home sleep study Prior sleep studies: No Year and Where: 2020 - [facility] CPAP Compliance Data - Data Reviewed with Patient Average duration of nightly device use: 6 HRS 24 MINS Compliance rate %: 83 (05/23/23-05/21/24; 302/365 days used) Current pressure setting (cmH2O): 12-15 Average residual AHI: 2.6 Central apnea: 0.1 Obstructive apnea: 0.7 Average large leak: 21.8 L/min Subjective Missed days of use due to: reports: illness (flu, sick for 2 weeks), travel Patient concerns: reports: air blowing in eyes, mask leak noise, dry mouth, nose, throat (dry mouth, sometimes). denies: aerophagia, mask discomfort, condensation in mask/hose, nasal congestion, epistaxis Observed to snore while using device: No Current pressure setting perceived as: comfortable On therapy, patient: reports: sleeping better, awakening more refreshed, being more awake and alert during the day, more rested overall. denies: drowsiness while driving Initial Dewitt Sleepiness Scale score: 4 (in 2020) Current Dewitt Sleepiness Scale score: 8 Allergies and Home Medications Known drug allergies: No Drug allergies reviewed: Yes Home medication list reviewed: Yes (no changes) Allergy and home medication list: Allergies No Known Drug Allergies Allergy (Verified 05/23/24 08:36) Review of Systems Review of systems same as previous: Yes (no changes) Physical Exam Vital signs obtained and entered by: Nayla Arango NP Blood Pressure: 120/54 Cuff size: regular (left arm) Heart Rate: 62 O2 Saturation: 98 Height: 5 ft 6 in Weight: 155 lb 3.2 oz Body Mass Index: 25.0 BMI Classification: Overweight Impression and Plan 1. Obstructive Sleep Apnea-Hypopnea Syndrome, severe, with good treatment compliance and good apnea control. On CPAP therapy, the patient has better sleep quality and is more rested overall. Patient does get some dry mouth with air leaks and mask leak noises. He rotates his cushion with to others and does not change them all often. I encouraged him to change his cushion once a month to reduce leaks and he voiced understanding. Patient has significant improvement of their sleep apnea and is satisfied with current CPAP therapy. Patient's apnea severity and rationale for treatment to reduce apnea, improve sleep quality and reduce cardiovascular and cerebrovascular events was reviewed. I also reviewed the benefit of consistent device use of CPAP for hypertension. 2. Overweight, minimal. Currently patients BMI is 25. Obesity increases the risk of apnea, CPAP pressure requirements and overall health risks especially cardiovascular and diabetes. Thus patient is advised to maintain healthy weight. * Continue auto CPAP pressure at 12-15 cmH2O * Update supply prescription. * Notify me if snoring with mask or feeling that the pressure is too much or too little * Call this office if any problems using CPAP * Return for follow up in 12 months, or sooner if concerns arise Counseling Topics: Spare mask Prescriptions: Device supplies Follow up with Sleep Care in: 1 year Visit Type: In Office Time Spent with Patient (minutes): 20 Provider Statement: I spent 100% of the Face to Face Visit with the patient with greater than 50% spent counseling the patient and coordination of care.
[2024-05-25 09:46] VITALS: BP 120/54; O2SAT 98
== END 2024-05-25 08:55 | disposition home or self-care (01) ==
LOC: SC 08:54
PROVIDERS: ATTEND Nurse Practitioner Family
DX: G47.33 Obstructive sleep apnea (adult) (pediatric) (principal); E66.3 Overweight; Z68.25 Body mass index [BMI] 25.0-25.9, adult
CPT/HCPCS: 99213; G0463; 99212

== ENCOUNTER 2024-06-27 07:17 | Outpatient (CLI) | payer MEDICARE ==
[2024-06-27 12:59] LABS: ALBUMIN 4.4 g/dL (3.2-5.5); ALKALINE PHOSPHATASE 46 IU/L (42-121); ALT ALANINE AMINOTRANSFERASE 8 IU/L (10-60); AST ASPARTATE AMINOTRANSFERASE 16 IU/L (10-42); BILIRUBIN,TOTAL 0.6 mg/dL (0.2-1.0); BUN - BLOOD UREA NITROGEN 17 mg/dL (6-20); CALCIUM 9.8 mg/dL (8.5-10.3); CARBON DIOXIDE - CO2 32 mmol/L (21-32); CHLORIDE 102 mmol/L (101-111); CHOL/HDL RATIO 3.1 (<5.0); CHOLESTEROL 147 mg/dL; CREATININE 0.9 mg/dL (0.6-1.3); GFR - MDRD 82 (>89); GLUCOSE 112 mg/dL (74-104); HDL CHOLESTEROL 48 mg/dL; LDL CHOLESTEROL,CALCULATED 71 mg/dL; LDL/HDL RATIO 1.5 (<3.6); POTASSIUM 4.6 mmol/L (3.5-4.5); SODIUM 137 mmol/L (135-145); TOTAL PROTEIN 6.6 g/dL (6.4-8.9); TRIGLYCERIDES 138 mg/dL; VLDL CHOLESTEROL 28 mg/dL
[2024-06-27 13:46] LABS: ESTIMATED AVERAGE GLUCOSE 123 mg/dL (70-100); HEMOGLOBIN A1c% 5.9 % (4.27-6.07)
== END 2024-06-27 07:18 | disposition home or self-care (01) ==
LOC: LAB.N 07:17
PROVIDERS: ATTEND Physician Assistant Medical
DX: E78.2 Mixed hyperlipidemia (principal); R73.9 Hyperglycemia, unspecified
CPT/HCPCS: 36415; 80053; 80061; 83036; 83721